=== PATIENT | male | born 1985 | race Caucasian/White ===

== ENCOUNTER 2018-04-10 15:56 | Emergency (ER) | payer OTHER ==
[~2018-04-10] VITALS: Ht 182.9 cm; Wt 102.0 kg
[~2018-04-10 15:56] MED LIST: LORTAB 10-325 M1 TAB PO; MOTRIN800 MG PO; NAPROSYN500 MG PO; TRAMADOL HCL50 MG PO; ULTRAM50 MG OR; ZITHROMAX500 MG PO
[2018-04-10] MEDS ORDERED: DOXYCYC MONO100 M1 PO (16:23)
[2018-04-10 16:35] VITALS: BP 134/81
== END 2018-04-10 16:35 | disposition home or self-care (01) ==
LOC: ED 15:56
DX: L08.9 Local infection of the skin and subcutaneous tissue, unspecified (principal); R22.31 Localized swelling, mass and lump, right upper limb

== ENCOUNTER 2019-02-16 12:00 | Emergency (ER) | payer OTHER ==
[~2019-02-16] VITALS: Ht 182.9 cm; Wt 100.0 kg
[~2019-02-16 12:00] MED LIST changes: +DOXYCYC MONO100 M1 PO
[2019-02-16 12:50] VITALS: BP 144/67
== END 2019-02-16 12:53 | disposition home or self-care (01) ==
LOC: ED 12:00
DX: S01.112A Laceration without foreign body of left eyelid and periocular area, initial encounter (principal); W31.89XA Contact with other specified machinery, initial encounter; Y93.89 Activity, other specified

== ENCOUNTER 2019-04-27 14:16 | Emergency (ER) | payer OTHER ==
[~2019-04-27] VITALS: Ht 182.9 cm; Wt 85.0 kg
[2019-04-27] MEDS ORDERED: AZITHROMYCIN1 GM PO (14:35)
[2019-04-27] MEDS ORDERED: BENZONATATE200 MG PO (14:36)
[2019-04-27] MEDS ORDERED: PREDNISONE10 MG PO (14:36)
[2019-04-27 16:50] VITALS: BP 133/84
== END 2019-04-27 17:00 | disposition home or self-care (01) | DRG 605 ==
LOC: ED 14:16
PROC: 0HQFXZZ Repair Right Hand Skin, External Approach (ICD-10-PCS; principal; 2019-04-27)
DX: S61.011A Laceration without foreign body of right thumb without damage to nail, initial encounter (principal); W31.1XXA Contact with metalworking machines, initial encounter; Y93.89 Activity, other specified; Y92.89 Other specified places as the place of occurrence of the external cause; Y99.0 Civilian activity done for income or pay

== ENCOUNTER 2019-05-06 16:09 | Emergency (ER) | payer OTHER ==
[~2019-05-06] VITALS: Ht 182.9 cm; Wt 100.0 kg
[~2019-05-06 16:09] MED LIST changes: +AZITHROMYCIN1 GM PO; +BENZONATATE200 MG PO; +PREDNISONE10 MG PO
[2019-05-06] MEDS ORDERED: CETIRIZINE10 MG PO (16:43)
[2019-05-06 16:45] VITALS: BP 109/81
== END 2019-05-06 16:45 | disposition home or self-care (01) ==
LOC: ED 16:09
DX: S61.011D Laceration without foreign body of right thumb without damage to nail, subsequent encounter (principal); X58.XXXD Exposure to other specified factors, subsequent encounter

== ENCOUNTER 2019-07-04 12:23 | Emergency (ER) | payer OTHER ==
[~2019-07-04] VITALS: Ht 182.9 cm; Wt 110.1 kg
[~2019-07-04 12:23] MED LIST changes: +CETIRIZINE10 MG PO
[2019-07-04] MEDS ORDERED: GENTAK0.32 OS (13:51)
[2019-07-04] MEDS ORDERED: TRAMADOL HYDROC50 MG PO (13:52)
[2019-07-04 14:10] VITALS: BP 120/72
== END 2019-07-04 14:10 | disposition home or self-care (01) | DRG 115 ==
LOC: ED 12:23
PROC: 08C9XZZ Extirpation of Matter from Left Cornea, External Approach (ICD-10-PCS; principal; 2019-07-04)
DX: T15.02XA Foreign body in cornea, left eye, initial encounter (principal); M25.641 Stiffness of right hand, not elsewhere classified; X58.XXXA Exposure to other specified factors, initial encounter; Y93.89 Activity, other specified

== ENCOUNTER 2020-11-26 09:18 | Emergency (ER) | payer MEDICAID ==
[~2020-11-26 09:18] MED LIST changes: +GENTAK0.32 OS; +TRAMADOL HYDROC50 MG PO
[2020-11-26 10:00] LABS: HEMATOCRIT 48.4 % (39.0-50.0); HEMOGLOBIN 16.1 g/dl (14.0-18.0); IMMATURE GRANULOCYTES 0.4 % (0.0-5.0); MEAN CELL VOLUME 88.5 fL CALC (80.0-100.0); MEAN CORPUSCULAR HGB 29.4 pG CALC (26.0-32.0); MEAN CORPUSCULAR HGB CONC 33.3 g/dL CAL (32.0-36.0); RED BLOOD COUNT 5.47 mill/uL (4.70-6.10); RED CELL DISTRI WIDTH 12.6 % (11.5-15.5)
[2020-11-26 10:16] LABS: ALBUMIN 4.5 g/dL (3.2-5.0); ALKALINE PHOSPHATASE 56 u/l (38-126); BILIRUBIN, TOTAL 0.9 mg/dL (0.0-1.4); BUN 10 mg/dL (9-20); BUN/CREATININE RATIO 12 (12-20 (CALC)); CARBON DIOXIDE 28 mmol/l (22-30); CHLORIDE 105 mmol/l (95-108); CREATININE 0.8 mg/dL (0.7-1.3); GFR > 60 ML/MIN (>=60 (CALC)); GFR FOR AFR.AMER. > 60 ML/MIN (>=60 (CALC)); LIPASE 38 u/l (23-300); SGOT/AST 25 u/l (17-59); SODIUM 138 mmol/l (137-146); TOTAL PROTEIN 7.4 g/dL (6.3-8.2)
[2020-11-26 10:20] LABS: ANION GAP 10 (6-22 (CALC)); POTASSIUM 4.7 mmol/l (3.5-5.1)
[2020-11-26] MEDS ORDERED: XANAX0.5 MG PO (10:34)
[2020-11-26] MEDS ORDERED: MULTIVITAMI9 PO (10:35)
[2020-11-26 11:39] LABS: URINE BILIRUBIN - DIPSTICK NEGATIVE (NEGATIVE); URINE BLOOD DIPSTICK NEGATIVE (NEGATIVE); URINE COLOR YELLOW; URINE GLUCOSE - DIPSTICK NEGATIVE (NEGATIVE); URINE KETONE NEGATIVE (NEGATIVE); URINE LEUK ESTERASE NEGATIVE (NEGATIVE); URINE PROTEIN - DIPSTICK NEGATIVE (NEG-TRACE); URINE UROBILINOGEN - DIPSTICK 0.2 E.U./dL (0.2)
[2020-11-26 12:01] LABS: URINE NITRITE - DIPSTICK NEGATIVE (Negative)
[2020-11-26 12:15] VITALS: BP 116/69
== END 2020-11-26 12:25 | disposition home or self-care (01) | DRG 556 ==
LOC: ED 09:18
PROVIDERS: Family Medicine
DX: M25.512 Pain in left shoulder (principal); R07.81 Pleurodynia; M25.562 Pain in left knee; V86.56XA Driver of dirt bike or motor/cross bike injured in nontraffic accident, initial encounter; Y93.I9 Activity, other involving external motion; Y92.39 Other specified sports and athletic area as the place of occurrence of the external cause
CPT/HCPCS: Q9967

== ENCOUNTER 2021-01-01 13:49 | Emergency (ER) | payer OTHER, MEDICAID ==
[~2021-01-01] VITALS: Ht 182.9 cm; Wt 102.0 kg
[~2021-01-01 13:49] MED LIST changes: +MULTIVITAMI9 PO; +XANAX0.5 MG PO
[2021-01-01 13:59] VITALS: BP 145/90
[2021-01-01] MEDS ORDERED: CEPHALEXIN500 M1 PO (15:14)
== END 2021-01-01 15:30 | disposition home or self-care (01) | DRG 914 ==
LOC: ED 13:49
DX: S61.241A Puncture wound with foreign body of left index finger without damage to nail, initial encounter (principal); F41.9 Anxiety disorder, unspecified; W22.8XXA Striking against or struck by other objects, initial encounter; Y92.89 Other specified places as the place of occurrence of the external cause; Y99.0 Civilian activity done for income or pay